=== PATIENT | female | born 1995 | race African-American/Black ===

== ENCOUNTER 2021-02-02 09:05 | Observation (INO) ==
[2021-02-02] MEDS ORDERED: SODIUM CHLORIDE 0.9% 1,000 ML IV STA (09:37)
[2021-02-02] MEDS ORDERED: ONDANSETRON 4 MG/2 ML VIAL IV STA (09:38)
[2021-02-02 10:20] LABS: Bilirubin,Urine Small mg/dL (Negative); Blood, Urine Negative (Negative); Glucose,Urine (UA) Negative (Negative); Ketones,Urine 80 mg/dL (Negative); Mucus,Urine Many /LPF (Occasional); Nitrite,Urine Negative (Negative); Protein,Urine 100 MG/DL; RBC,Urine 3 /HPF (0-4); Squamous Epithelial Cell,Urine Occasional /HPF (0-10); Urine Appearance Slightly Hazy (Clear); Urine Color Amber (Yellow); Urine Specific Gravity 1.032 (1.001-1.035)
[2021-02-02] MEDS ORDERED: IBUPROFEN 800 MG TABLET PO PRN (11:38)
[2021-02-02] MEDS ORDERED: MAGNESIUM HYDROXIDE SUSP 30 ML UDCUP PO PRN (11:38)
[2021-02-02] MEDS ORDERED: BISACODYL 10 MG SUPP RECTAL PRN (11:38)
[2021-02-02] MEDS ORDERED: ACETAMINOPHEN 325 MG TABLET PO PRN (11:38)
[2021-02-02] MEDS ORDERED: SCOPOLAMINE 1.5 MG PATCH TRANSDERM SCH (12:51)
[2021-02-02] MEDS: LACTATED RINGERS 1,000 ML IV SCH ×2 (12:55→21:13)
[2021-02-02 13:01] LABS: Basophils % 0.1 % (0.0-0.8); Eosinophils % 0.1 % (0.00-10.9); Hematocrit 35.4 VOL% (35.7-47.0); Immature Granulocytes % 0.3 %; Immature Granulocytes Absolute 0.02 #; Lymphocytes # 1.7 10*3/uL (1.4-4.0); Lymphocytes % 23.5 % (21.3-54.2); Mean Corpuscular HGB Conc 33.9 GM/DL (32-36); Mean Corpuscular Volume 76.5 FL (87-102); Mean Platelet Volume 11.4 FL (9.6-12.0); Monocytes % 10.6 % (1.7-12.7); Neutrophils % 65.4 % (38.7-73.9); Platelet Count 295 T/CUMM (130-400); Red Blood Count 4.63 MC/CUMM (3.8-5.5); Red Cell Distribution Width 16.3 % (9.3-17.3); White Blood Count 7.1 T/CUMM (4-12)
[2021-02-02 13:18] LABS: Albumin 2.8 G/DL (3.4-5.0); Bilirubin,Total 0.7 MG/DL (0.2-1.0); Calcium 8.4 MG/DL (8.5-10.1); Osmolality,Calculated 270.7 MOS/KG (273-304); Potassium 3.6 MMOL/L (3.5-5.1); Total Protein 7.6 G/DL (6.4-8.2)
[2021-02-02] MEDS: NITROFURANTOIN MACRO/MONO 100 MG CAPSULE PO SCH (20:19)
[2021-02-02] MEDS ORDERED: ALUMINUM/MAGNES/SIMETH MAX STR 30 ML UDCUP PO PRN (21:17)
[2021-02-02] MEDS: DOCUSATE SODIUM 100 MG CAPSULE PO SCH (21:46)
[2021-02-02] MEDS: ONDANSETRON 4 MG/2 ML VIAL IV PRN (21:57)
[2021-02-03] MEDS: ONDANSETRON 4 MG/2 ML VIAL IV PRN ×4 (03:29→22:49)
[2021-02-03] MEDS: LACTATED RINGERS 1,000 ML IV SCH ×2 (05:24→13:16)
[2021-02-03 06:53] LABS: Albumin 2.2 G/DL (3.4-5.0); Bilirubin,Total 1.1 MG/DL (0.2-1.0); Calcium 8.1 MG/DL (8.5-10.1); Osmolality,Calculated 268.8 MOS/KG (273-304); Potassium 3.3 MMOL/L (3.5-5.1); Total Protein 6.2 G/DL (6.4-8.2)
[2021-02-03] MEDS: PANTOPRAZOLE 40 MG VIAL IV SCH ×2 (08:34→22:28)
[2021-02-03] MEDS: POTASSIUM CHLORIDE RIDER 10 MEQ/100 ML PREMIX IV PRN ×7 (08:37→20:15)
[2021-02-03] MEDS ORDERED: MULTIVITAMIN INJ 10 ML in SODIUM CHLORIDE 0.9% 1,000 ML IV SCH (13:30)
[2021-02-03] MEDS: DOCUSATE SODIUM 100 MG CAPSULE PO SCH ×2 (16:08→21:00)
[2021-02-03] MEDS: NITROFURANTOIN MACRO/MONO 100 MG CAPSULE PO SCH ×2 (16:08→17:50)
[2021-02-04] MEDS: ONDANSETRON 4 MG/2 ML VIAL IV PRN (05:28)
[2021-02-04] MEDS: NITROFURANTOIN MACRO/MONO 100 MG CAPSULE PO SCH (06:24)
[2021-02-04] MEDS: PANTOPRAZOLE 40 MG VIAL IV SCH (08:58)
[2021-02-04] MEDS: DOCUSATE SODIUM 100 MG CAPSULE PO SCH (09:02)
[2021-02-04] MEDS: LACTATED RINGERS 1,000 ML IV SCH (09:03)
[2021-02-04 09:43] VITALS: BP 103/68
== END 2021-02-04 12:45 | disposition home or self-care (01) ==
LOC: N.ED 09:05 → INTOOBSV 11:37 → N.EDINP 11:37 → N.OB 12:04
PROVIDERS: ADMIT Obstetrics & Gynecology; ATTEND Nurse Practitioner